=== PATIENT | female | born 1955 | race Caucasian/White ===

== ENCOUNTER 2020-05-16 13:52 | Observation (INO) | payer OTHER ==
[~2020-05-16] VITALS: Ht 167.6 cm; Wt 68.0 kg
[2020-05-16 13:55] VITALS: BP_SYST 106
[2020-05-16 14:48] LABS: BASOPHILS % (AUTO) 0.6 % (0.0-2.0); EOSINOPHILS # (AUTO) 0.2 K/uL (0.0-0.4); EOSINOPHILS % (AUTO) 2.4 % (0.0-4.0); HEMATOCRIT 43.6 % (36-48); HEMOGLOBIN 14.1 g/dL (12.0-16.0); LYMPHOCYTES % (AUTO) 26.3 % (20.5-51.5); MEAN CORPUSCULAR HEMOGLOBIN 31 pg (27-31); MEAN CORPUSCULAR HGB CONC 32 % (32-36); MEAN CORPUSCULAR VOLUME 97 fL (79.0-98.0); MONOCYTES # (AUTO) 0.6 K/uL (0.0-1.0); MONOCYTES % (AUTO) 8.6 % (1.7-9.3); NEUTROPHILS # (AUTO) 4.6 K/uL (1.8-7.7); NEUTROPHILS % (AUTO) 62.1 % (40.0-70.0); PLATELET COUNT (AUTO) 211 K/uL (130-430); RED BLOOD CELL COUNT(AUTO) 4.51 MIL/uL (4.2-6.2); RED CELL DISTRIBUTION WIDTH 12.8 % (9.0-15.0); WHITE BLOOD COUNT (AUTO) 7.4 K/uL (4.8-10.8)
[2020-05-16 15:12] LABS: ANION GAP 11 (5-15); CALCIUM 9.4 mg/dL (8.4-11.0); CHLORIDE 109 mmol/L (98-107); CREATININE 0.83 mg/dL (0.55-1.30); GLUCOSE 95 mg/dL (70-99); POTASSIUM 3.8 mmol/L (3.5-5.1); SODIUM SERUM 145 mmol/L (136-145); UREA NITROGEN, BLOOD 8 mg/dL (8-21)
[2020-05-16 15:17] LABS: GFR AFRICAN AMERICAN 89 mL/min (>90)
[2020-05-16 15:19] LABS: PROTHROMBIN TIME 10.4 SECS (9.5-12.5)
[2020-05-16 15:27] LABS: ALANINE AMINOTRANSFERASE 27 U/L (12-78); ALBUMIN 3.6 g/dL (3.4-4.8); ASPARTATE AMINOTRANSFERASE 23 U/L (10-37); FREE T4 (FREE THYROXINE) 1.2 ng/dl (0.8-1.5); THYROID STIMULATING HORMONE 2.49 uIu/mL (0.36-3.74); TOTAL BILIRUBIN 0.5 mg/dL (0.0-1.0)
[2020-05-16] MEDS: DILTIAZEM HCL 25 MG/5 ML VIAL IVP ONE (16:20)
[2020-05-16] MEDS ORDERED: ATEN-167 PO (17:52)
[2020-05-16] MEDS ORDERED: PLE5 PO (17:52)
[2020-05-16] MEDS ORDERED: LIP20 PO (17:52)
[2020-05-16] MEDS ORDERED: LOSA100T3 PO (17:52)
[2020-05-16] MEDS ORDERED: PARO-63 PO (17:53)
[2020-05-17 11:34] VITALS: BP_SYST 129
[2020-05-17 11:53] VITALS: BP_SYST 129
== END 2020-05-17 11:52 | disposition home or self-care (01) ==
LOC: SED 13:52 → INTOOBSV 16:19 → STU 16:19
PROVIDERS: ADMIT Internal Medicine Hospice and Palliative Medicine; ATTEND Internal Medicine Hospice and Palliative Medicine
DX: I48.91 Unspecified atrial fibrillation (principal); I10 Essential (primary) hypertension; E78.00 Pure hypercholesterolemia, unspecified; E78.5 Hyperlipidemia, unspecified; F17.210 Nicotine dependence, cigarettes, uncomplicated; F41.8 Other specified anxiety disorders
CPT/HCPCS: 36415; 71045; 80053; 84439; 84443; 84484; 85025; 85610; 93005; 96374; 99285; G0378; J3490